=== PATIENT | male | born 1945 | race Caucasian/White ===

== ENCOUNTER 2025-02-06 11:58 | Outpatient (CLI) | payer MEDICARE ==
[~2025-02-06 11:58] MED LIST: barium sulfate 340gm for oral suspension 1 BOTTLE SUSP.RECON PO ONE
--- NOTE | 2025-02-06 17:13 | RADIOLOGY REPORT ---
Esophagram study: HISTORY: Dysphasia. GERD. Request for giving barium tablet as well as liquid. Multiple gastric and hernia related surgeries. With the patient in both upright and prone positions both thin and thick barium liquid meals as well as a barium tablet were administered under direct fluoroscopic evaluation. There is unremarkable esophageal distensibility and contractility. The proximal and mid esophageal mucosal pattern appears unremarkable. There is evidence of multiple hiatal hernia intervention surgeries with an S shaped distal esophageal orientation as well as slight narrowing at the gastroesophageal junction. Findings suggest extrinsic impressions at several aspects of the distal esophagus. There is mild gastroesophageal reflux. 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 Decreased mucosal detail at the proximal and mid body of the stomach. Swallowing of the barium pill did not result in retention at the esophagus or gastroesophageal junction. There is adequate duodenal bulb distensibility. The duodenal and proximal jejunal mucosal pattern appear unremarkable. Total fluoroscopy time was 1.2 minutes with dose of 27.76 mGy. IMPRESSION: Sequela from previous gastric and hiatal hernia related surgeries and surgery redo operations demonstrated. Patient is a somewhat complex history. There is an S-shaped distal esophagus/gastric junction anatomy which does not result in a focal stricture nor hang-up of thin/thick barium nor barium tablets. There was mild gastroesophageal reflux however.
== END 2025-02-06 23:59 | disposition home or self-care (01) ==
LOC: RAD 11:58
PROVIDERS: ATTEND Internal Medicine Gastroenterology
DX: K21.9 Gastro-esophageal reflux disease without esophagitis (principal); R13.10 Dysphagia, unspecified; K44.9 Diaphragmatic hernia without obstruction or gangrene
CPT/HCPCS: 74220